=== PATIENT | male | born 1945 | race Caucasian/White ===

== ENCOUNTER 2016-06-12 10:41 | Inpatient (IN) | payer BC, OTHER ==
[~2016-06-12] VITALS: Ht 177.8 cm; Wt 94.8 kg
[~2016-06-12 10:41] MED LIST: FLV1 PO; METH2.5T PO; PRED-301 PO
[2016-06-12 12:31] VITALS: BP 141/89; PULSE 74; TEMP 36.4; O2SAT 96; Ht 177.8 cm; Wt 94.8 kg
[2016-06-12] MEDS ORDERED: FERR1TAB13 PO (13:09)
[2016-06-12] MEDS ORDERED: OMEP20CA9 PO (13:09)
[2016-06-12] MEDS ORDERED: DOXY100C76 PO (13:09)
[2016-06-12] MEDS ORDERED: ACETAMINOPHEN 325 MG TAB PO PRN (13:30)
[2016-06-12] MEDS ORDERED: ZOLPIDEM TARTRATE 5 MG TAB PO PRN (13:30)
[2016-06-12] MEDS ORDERED: POLYETHYLENE (MIRALAX) 17 GM PACK PO PRN (13:30)
[2016-06-12] MEDS ORDERED: MAGNESIUM HYDROXIDE SUSP 30 ML UDC PO PRN (13:30)
[2016-06-12] MEDS ORDERED: ALUMINUM/MAGNESIUM/SIMETH (MAALOX MAX) 30 ML UDC PO PRN (13:30)
[2016-06-12] MEDS ORDERED: ONDANSETRON INJ 2 MG/ML 2 ML VIAL IV PRN (13:30)
[2016-06-12 13:50] LABS: BASO % 0.3 %; BASO ABS # 0.02 K/uL (0-0.2); COMPLETE YES; HEMATOCRIT 48.2 % (42-52); IG% 0.3 %; LYMPH % 19.3 %; LYMPH ABS # 1.23 K/uL (1.2-3.4); MEAN CELL VOLUME 90.1 fL (80-100); MEAN CORPUSCULAR HEMOGLOBIN 30.7 pg (25-34); MEAN PLATELET VOLUME 10.1 fL (7.4-10.4); MONO % 10.4 %; NEUT % 66.7 %; PLATELET COUNT 142 K/uL (130-400); RED BLOOD COUNT 5.35 M/uL (4.7-6.1); WHITE BLOOD COUNT 6.36 K/uL (4.8-10.8)
[2016-06-12] MEDS ORDERED: CEFTRIAXONE SOD INJ 1 GM in DEXTROSE 5% ADD-VANTAGE 50ML 50 ML IV SCH (14:00)
[2016-06-12 14:06] LABS: PROTHROMBIN TIME (PATIENT) 10.3 SECONDS (9.0-12.0)
--- NOTE | 2016-06-12 14:12 | History and Physical ---
History & Physical Date & Time of Service: Jun 12, 2016 at 13:46 Chief Complaint: Left Foot Cellulitis Primary Care Physician: Rock Aguirre D.O. History of Present Illness Source: patient, clinic records This is a 70 year old male with PMH of rheumatoid arthritis on methotrexate and chronic prednisone who presents as a direct admission from Dr. Aguirre's office for left foot cellulitis which failed outpatient treatment. Patient initially developed erythema and swelling on the dorsum of his left foot on 06/03. There was no trauma. At that time he was seen by Dr. Aguirre in clinic and started on Keflex. Pt was seen again on 06/07, noted to have no improvement, so prednisone taper was added. He was seen again on 06/09, prednisone taper was stopped, he was given Rocephin 1 gram injection x1 dose, and PO antibiotics changed to Augmentin. Patient still had no improvement when seen in clinic today, so was sent for direct admission and IV antibiotics. Pt states he is able to bear weight normally, but has mild soreness on dorsum of foot rated 2/10 after standing for an extended period. Patient denies any fever or chills. No recent hospitalizations. Denies diabetes or hx of MRSA. Past Medical/Surgical History Medical Problems: (1) History of iron deficiency anemia Status: Chronic (2) Rheumatoid arthritis Status: Chronic (3) Rosacea Status: Chronic Surgical Problems: (1) H/O colonoscopy Status: Chronic (2) H/O esophagogastroduodenoscopy Status: Chronic (3) H/O inguinal hernia repair Status: Chronic (4) S/P cervical spinal fusion Status: Chronic Family History Cardiac disorder FATHER Hypertension MOTHER Stroke FATHER Social History Smoking Status: Former Smoker (quit in ) Alcohol Use: occasionally Marital Status: Housing status: lives with family Immunizations History of Influenza Vaccine: No History of Tetanus Vaccine?: Unknown History of Pneumococcal: Yes History of Hepatitis B Vaccine: Unknown Multi-Drug Resistant Organisms History of MDRO: No Allergies Coded Allergies: No Known Allergies (Verified Allergy, Unknown, 11/26/07) Home Medications Scheduled Doxycycline Monohydrate (Monodox), 100 MG PO DAILY Ferrous Sulfate (Kp Ferrous Sulfate), 1 TAB PO DAILY Folic Acid (Folvite *), 1 MG PO DAILY Methotrexate (Methotrexate), 20 MG PO WK Omeprazole (Prilosec), 20 MG PO DAILY Prednisone (Prednisone), 5 MG PO DAILY Review of Systems Constitutional: No chills, No fever, No sweats Eyes: No worsening of vision ENT: No nasal symptoms Respiratory: No cough, No shortness of breath Cardiovascular: No chest pain Abdomen: No diarrhea, No nausea, No vomiting Musculoskeletal: No joint pain (no joint pain- states RA is controlled) Genitourinary - Male: No problem reported (denies urinary change) Neurologic: No numbness/tingling, No problem reported (no BENAVIDEZ) Integumentary: + color change Physical Exam Vital Signs Date Time Temp Pulse Resp B/P Pulse Ox O2 Delivery O2 Flow Rate FiO2 06/12/16 12:31 36.4 74 16 141/89 96 Room Air General Appearance: WD/WN, no apparent distress, + pertinent finding (alert pleasant 70 year old male, no distress, at bedside) Head: normocephalic, atraumatic Eyes: normal inspection, PERRL, EOMI ENT: hearing grossly normal, pharynx normal Neck: supple, trachea midline Respiratory/Chest: lungs clear, normal breath sounds, no respiratory distress, no accessory muscle use Cardiovascular: regular rate, rhythm, no murmur Abdomen/GI: normal bowel sounds, non tender, soft Extremities/Musculoskelatal: no calf tenderness, no pedal edema, normal range of motion (left ankle ), + pertinent finding (DP pulses 2+ bilaterally. Left ankle nontender with normal ROM. Left MTP joints nontender.) Neurologic/Psych: alert, normal mood/affect, oriented x 3, + pertinent finding (grossly nonfocal) Skin: warm/dry, + pertinent finding (mild erythema and swelling on dorsum of left foot. no open areas. no fluctuance. ) Diagnostics Laboratory Results Results Past 24 Hours Test 06/12/16 13:35 06/12/16 13:36 Range/Units Microbiology Results 06/12/16 Blood Culture, Received Pending 06/12/16 Blood Culture, Panchito Batch Pending Impression Assessment and Plan LEFT FOOT CELLULITIS Failed outpatient treatment with Keflex, Augmentin, and Rocephin injection x 1 on 06/09/16 Afebrile, no leukocytosis, no tachycardia, no hypotension Check PRP, uric acid Check blood culture No open area to culture on the foot Start on Rocephin 1 gm/ daily RHEUMATOID ARTHRITIS On methotrexate and chronic prednisone 5 mg ROSACEA On doxycycline at home DVT PROPHYLAXIS Lovenox SQ DISPOSITION Admitted to med/surg Lives with Follows with Dr. Augirre for primary care Patient seen in collaboration with Dr. Evans. Pleases see his addendum. ATTENDING NOTE Patient seen & examined at bedside. Reviewed above History/Physical and confirmed all the findings in person. Patient was being treated for Cellulitis Left foot as outpatient and has failed on oral antibiotics. He has erythema with some localized tenderness. Initial labs ordered. Started I/V Rocephin. Pain medications as needed. Holding Doxycycline for Rosacea. Patient is FULL CODE. DVT Prophylaxis with Sq Lovenox. Patient will be followed by Dr. Al. Ruy Evans MD Level of Care Med/Surg Advanced Directives Existing Advance Directive: No Existing Living Will: No Existing Power of Gambling Cashier: No Resuscitation Status FULL RESUSCITATION VTE Prophylaxis VTE Risk Assessment Done? Y/N: Yes Risk Level: Low Given or contraindicated: Enoxaparin (Lovenox)SQ
[2016-06-12 14:23] LABS: BUN/CREATININE RATIO 24.2 (10-20); CALCIUM 8.8 mg/dl (8.5-10.1); CREATININE 0.77 mg/dl (0.60-1.40)
[2016-06-12 14:26] LABS: ALB/GLOB RATIO 1.2 (0.9-2)
[2016-06-12 15:17] VITALS: BP 125/76; PULSE 68; TEMP 36.6; O2SAT 97
[2016-06-12] MEDS: CEFTRIAXONE SOD INJ 1 GM in DEXTROSE 5% ADD-VANTAGE 50ML 50 ML IV SCH (15:33)
[2016-06-12] MEDS: ENOXAPARIN 40 MG/0.4 ML SYR SC SCH (21:08)
[2016-06-12 23:30] VITALS: BP 102/65; PULSE 63; TEMP 36.3; O2SAT 96
[2016-06-13 05:41] LABS: BASO % 0.3 %; BASO ABS # 0.02 K/uL (0-0.2); COMPLETE YES; HEMATOCRIT 45.3 % (42-52); IG% 0.3 %; LYMPH % 17.7 %; LYMPH ABS # 1.02 K/uL (1.2-3.4); MEAN CELL VOLUME 90.1 fL (80-100); MEAN CORPUSCULAR HEMOGLOBIN 30.6 pg (25-34); MEAN PLATELET VOLUME 10.4 fL (7.4-10.4); MONO % 14.3 %; NEUT % 63.4 %; PLATELET COUNT 139 K/uL (130-400); RED BLOOD COUNT 5.03 M/uL (4.7-6.1); WHITE BLOOD COUNT 5.75 K/uL (4.8-10.8)
[2016-06-13 06:36] LABS: BUN/CREATININE RATIO 23.9 (10-20); CALCIUM 8.4 mg/dl (8.5-10.1); CREATININE 0.86 mg/dl (0.60-1.40); POTASSIUM 4.4 mmol/L (3.5-5.1)
[2016-06-13 07:26] VITALS: BP 119/74; PULSE 65; TEMP 36.5; O2SAT 95
[2016-06-13] MEDS: FERROUS SULFATE 325 MG TAB PO SCH (09:49)
[2016-06-13] MEDS: PANTOprazole SOD 40 MG TAB PO SCH (09:49)
[2016-06-13] MEDS: CEFTRIAXONE SOD INJ 1 GM in DEXTROSE 5% ADD-VANTAGE 50ML 50 ML IV SCH (14:38)
[2016-06-13 14:59] VITALS: BP 137/83; PULSE 69; TEMP 36.6; O2SAT 94
--- NOTE | 2016-06-13 15:22 | Progress Note ---
Medicine Progress Note Date & Time of Visit: Jun 13, 2016 at 15:07. Subjective Pt was seen and examined Lying in bed comfortable with no distress was at bedside was a little upset because pt pt is only getting rocephin daily for the cellulitis she feels like there should be no need to stay in the hospital just for that. I explained to them that pt failed outpatient treatment for cellulitis with po med. he will need to stay in the hospital for today and possible transition to po med once culture results. Pt denies any fever, palpitation, dizziness and SOB Pt said that the erythema and tenderness and improved, but the left dorsal foot still swelling. Objective Last 8 Hrs Date Time Temp Pulse Resp B/P Pulse Ox O2 Delivery O2 Flow Rate FiO2 06/13/16 14:59 36.6 69 18 137/83 94 Room Air 06/13/16 07:30 Room Air 06/13/16 07:26 36.5 65 18 119/74 95 Room Air Physical Exam: General- no acute distress Head- atraumatic Eyes- PERRL, EOMI ENT- oropharynx clear Neck- supple, no JVD Lungs- clear to auscultation and percussion Heart- regular rhythm; no murmur Abdomen- normal bowel sounds, soft, nontender Extremities- no calf tenderness, left foot swelling and warmness, erythema improved Neuro- alert, oriented x 3; PERRL, EOMI; no facial palsy Skin- warm & dry Laboratory Results: Last 24 Hours Test 06/13/16 05:30 White Blood Count 5.75 K/uL Red Blood Count 5.03 M/uL Hemoglobin 15.4 g/dL Hematocrit 45.3 % Mean Corpuscular Volume 90.1 fL Mean Corpuscular Hemoglobin 30.6 pg Mean Corpuscular Hemoglobin Concent 34.0 g/dl Platelet Count 139 K/uL Mean Platelet Volume 10.4 fL Neutrophils (%) (Auto) 63.4 % Lymphocytes (%) (Auto) 17.7 % Monocytes (%) (Auto) 14.3 % Eosinophils (%) (Auto) 4.0 % Basophils (%) (Auto) 0.3 % Neutrophils # (Auto) 3.64 K/uL Lymphocytes # (Auto) 1.02 K/uL Monocytes # (Auto) 0.82 K/uL Eosinophils # (Auto) 0.23 K/uL Basophils # (Auto) 0.02 K/uL RDW Standard Deviation 47.7 fL RDW Coefficient of Variation 14.6 % Immature Granulocyte % (Auto) 0.3 % Immature Granulocyte # (Auto) 0.02 K/uL Sodium Level 143 mmol/L Potassium Level 4.4 mmol/L Chloride Level 108 mmol/L Carbon Dioxide Level 30 mmol/L Anion Gap 5.0 mmol/L Blood Urea Nitrogen 21 mg/dl Creatinine 0.86 mg/dl Est Creatinine Clear Calc Drug Dose 93.7 ml/min Estimated GFR () 102.5 Estimated GFR (Non- 88.5 BUN/Creatinine Ratio 23.9 Random Glucose 92 mg/dl Calcium Level 8.4 mg/dl Assessment & Plan LEFT FOOT CELLULITIS Failed outpatient treatment with Keflex, Augmentin, and Rocephin injection x 1 on 06/09/16 Afebrile, no WBC On Rocephin IV day 2 blood culture pending Erythema improved significantly will transition to PO abx upon discharge RHEUMATOID ARTHRITIS On methotrexate and chronic prednisone 5 mg Stable ROSACEA On doxycycline at home that is being held DVT PROPHYLAXIS Lovenox SQ DISPOSITION Admitted to med/surg Follows with Dr. Aguirre for primary care Current Inpatient Medications: Current Inpatient Medications Medications (Trade) Dose Ordered Sig/La Route Start Time Stop Time Status Last Admin Dose Admin Folic Acid (Folvite Tab) 1 mg DAILY PO 06/13/16 09:00 07/13/16 08:59 06/13/16 09:49 1 MG Prednisone (PredniSONE TAB) 5 mg DAILY PO 06/13/16 09:00 07/13/16 08:59 06/13/16 09:50 5 MG Ferrous Sulfate (Feosol Tab) 325 mg DAILY PO 06/13/16 09:00 07/13/16 08:59 06/13/16 09:49 325 MG Pantoprazole Sodium (Protonix Tab) 40 mg DAILY PO 06/13/16 09:00 07/13/16 08:59 06/13/16 09:49 40 MG Enoxaparin Sodium (Lovenox Inj) 40 mg Q24H SC 06/12/16 21:00 07/12/16 20:59 06/12/16 21:08 40 MG Acetaminophen (Tylenol Tab) 650 mg Q4H PRN PO 06/12/16 13:30 07/12/16 13:29 Al Hydrox/Mg Hydrox/Simethicone (Maalox Max Susp) 15 ml Q4H PRN PO 06/12/16 13:30 07/12/16 13:29 Magnesium Hydroxide (Milk Of Magnesia Susp) 30 ml Q12H PRN PO 06/12/16 13:30 07/12/16 13:29 Zolpidem Tartrate (Ambien Tab) 5 mg HSZ PRN PO 06/12/16 13:30 07/12/16 13:29 Ondansetron HCl (Zofran Inj) 4 mg Q6H PRN IV 06/12/16 13:30 07/12/16 13:29 Polyethylene 17 gm 17 gm DAILY PRN PO 06/12/16 13:30 07/12/16 13:29 Ceftriaxone Sodium/Dextrose (Rocephin Inj/ Dextrose Add-[place] 50ML) 50 ml @ 100 mls/hr Q24H IV 06/12/16 15:00 06/22/16 14:59 06/13/16 14:38 100 MLS/HR
[2016-06-13] MEDS: ENOXAPARIN 40 MG/0.4 ML SYR SC SCH (21:27)
[2016-06-13 22:50] VITALS: BP 132/76; PULSE 60; TEMP 36.5; O2SAT 99
[2016-06-14 06:58] LABS: HEMATOCRIT 43.7 % (42-52); MEAN CELL VOLUME 87.8 fL (80-100); MEAN CORPUSCULAR HEMOGLOBIN 30.1 pg (25-34); MEAN CORPUSCULAR HGB CONC 34.3 g/dl (32-36); MEAN PLATELET VOLUME 10.5 fL (7.4-10.4); PLATELET COUNT 137 K/uL (130-400); RED BLOOD COUNT 4.98 M/uL (4.7-6.1); WHITE BLOOD COUNT 5.84 K/uL (4.8-10.8)
[2016-06-14 07:27] LABS: BUN/CREATININE RATIO 20.3 (10-20); CALCIUM 8.3 mg/dl (8.5-10.1); CREATININE 0.94 mg/dl (0.60-1.40)
[2016-06-14 08:01] VITALS: BP 130/72; PULSE 74; TEMP 36.7; O2SAT 95
[2016-06-14 09:10] VITALS: O2SAT 95
[2016-06-14] MEDS: PANTOprazole SOD 40 MG TAB PO SCH (10:05)
[2016-06-14] MEDS: FERROUS SULFATE 325 MG TAB PO SCH (10:05)
[2016-06-14] MEDS: CEFTRIAXONE SOD INJ 1 GM in DEXTROSE 5% ADD-VANTAGE 50ML 50 ML IV SCH (14:28)
--- NOTE | 2016-06-14 14:51 | Progress Note ---
Medicine Progress Note Date & Time of Visit: Jun 14, 2016 at 14:43. Subjective Pt was seen and examined Pt sitting in chair comfortable with no distress Pt said that the foot looks better, but it is still swelling he denies any tenderness, chest pain, palpitation and SOB. Pt would like to go home today. Objective Last 8 Hrs Date Time Temp Pulse Resp B/P Pulse Ox O2 Delivery O2 Flow Rate FiO2 06/14/16 09:10 95 Room Air 06/14/16 08:01 36.7 74 16 130/72 95 Room Air 06/14/16 07:15 Room Air Physical Exam: General- no acute distress Head- atraumatic Eyes- PERRL, EOMI ENT- oropharynx clear Neck- supple, no JVD Lungs- clear to auscultation and percussion Heart- regular rhythm; no murmur Abdomen- normal bowel sounds, soft, nontender Extremities- no calf tenderness, left foot swelling, erythema improved Neuro- alert, oriented x 3; PERRL, EOMI; no facial palsy Skin- warm & dry Laboratory Results: Last 24 Hours Test 06/14/16 06:29 White Blood Count 5.84 K/uL Red Blood Count 4.98 M/uL Hemoglobin 15.0 g/dL Hematocrit 43.7 % Mean Corpuscular Volume 87.8 fL Mean Corpuscular Hemoglobin 30.1 pg Mean Corpuscular Hemoglobin Concent 34.3 g/dl RDW Standard Deviation 46.1 fL RDW Coefficient of Variation 14.6 % Platelet Count 137 K/uL Mean Platelet Volume 10.5 fL Sodium Level 144 mmol/L Potassium Level 4.0 mmol/L Chloride Level 110 mmol/L Carbon Dioxide Level 24 mmol/L Anion Gap 10.0 mmol/L Blood Urea Nitrogen 19 mg/dl Creatinine 0.94 mg/dl Est Creatinine Clear Calc Drug Dose 85.7 ml/min Estimated GFR () 95.5 Estimated GFR (Non- 82.4 BUN/Creatinine Ratio 20.3 Random Glucose 93 mg/dl Calcium Level 8.3 mg/dl Assessment & Plan LEFT FOOT CELLULITIS Failed outpatient treatment with Keflex, Augmentin, and Rocephin injection x 1 on 06/09/16 Afebrile, no WBC On Rocephin IV day 3 blood culture showed no growth Erythema resolved will transition to PO ceftin 500mg BID upon discharge RHEUMATOID ARTHRITIS On methotrexate and chronic prednisone 5 mg Stable ROSACEA On doxycycline at home that is being held DVT PROPHYLAXIS Lovenox SQ DISPOSITION Follow up with your primary care provider Dr. Aguirre on Jun 19 at 2:50 pm Current Inpatient Medications: Current Inpatient Medications Medications (Trade) Dose Ordered Sig/La Route Start Time Stop Time Status Last Admin Dose Admin Folic Acid (Folvite Tab) 1 mg DAILY PO 06/13/16 09:00 07/13/16 08:59 06/14/16 10:05 1 MG Prednisone (PredniSONE TAB) 5 mg DAILY PO 06/13/16 09:00 07/13/16 08:59 06/14/16 10:05 5 MG Ferrous Sulfate (Feosol Tab) 325 mg DAILY PO 06/13/16 09:00 07/13/16 08:59 06/14/16 10:05 325 MG Pantoprazole Sodium (Protonix Tab) 40 mg DAILY PO 06/13/16 09:00 07/13/16 08:59 06/14/16 10:05 40 MG Enoxaparin Sodium (Lovenox Inj) 40 mg Q24H SC 06/12/16 21:00 07/12/16 20:59 06/13/16 21:27 40 MG Acetaminophen (Tylenol Tab) 650 mg Q4H PRN PO 06/12/16 13:30 07/12/16 13:29 Al Hydrox/Mg Hydrox/Simethicone (Maalox Max Susp) 15 ml Q4H PRN PO 06/12/16 13:30 07/12/16 13:29 Magnesium Hydroxide (Milk Of Magnesia Susp) 30 ml Q12H PRN PO 06/12/16 13:30 07/12/16 13:29 Zolpidem Tartrate (Ambien Tab) 5 mg HSZ PRN PO 06/12/16 13:30 07/12/16 13:29 Ondansetron HCl (Zofran Inj) 4 mg Q6H PRN IV 06/12/16 13:30 07/12/16 13:29 Polyethylene 17 gm 17 gm DAILY PRN PO 06/12/16 13:30 07/12/16 13:29 Ceftriaxone Sodium/Dextrose (Rocephin Inj/ Dextrose Add-[place] 50ML) 50 ml @ 100 mls/hr Q24H IV 06/12/16 15:00 06/22/16 14:59 06/14/16 14:28 100 MLS/HR
[2016-06-14 15:21] VITALS: BP 132/81; PULSE 62; TEMP 36.9; O2SAT 95
[2016-06-14] MEDS ORDERED: CEFU500T16 PO (16:14)
--- NOTE | 2016-06-14 16:20 | Discharge Instructions ---
Discharge Instructions Admission Reason for Admission: Left Foot Cellulitis Discharge Discharge Diagnosis / Problem: Left foot cellulitis, Rheumatoid arthritis Discharge Goals Goal(s): Decrease discomfort, Improve function, Improve disease control Activity Recommendations Activity Limitations: resume your previous activity . Instructions / Follow-Up Instructions / Follow-Up Follow up appointment with your primary care physician Dr. Aguirre on Jun 19 at 2:50 pm Please complete the course of antibiotic Keep leg elevates to decrease the swelling in left foot. Current Hospital Diet Patient's current hospital diet: AHA Diet (Heart Healthy) Discharge Diet Recommended Diet: AHA Diet (Heart Healthy) Pending Studies Studies pending at discharge: yes List of pending studies: Blood culture Medical Emergencies . Who to Call and When: Medical Emergencies: If at any time you feel your situation is an emergency, please call 911 immediately. . Non-Emergent Contact Non-Emergency issues call your: Primary Care Provider Call Non-Emergent contact if: you have a fever, you have any medication questions . . "Provider Documentation" section prepared by Keron Castano. VTE Core Measure Inpt VTE Proph given/why not?: Enoxaparin (Lovenox)SQ
[2016-06-14 16:45] VITALS: BP 132/81; PULSE 62; TEMP 36.9; O2SAT 95
--- NOTE | 2016-06-14 23:22 | Discharge Summary ---
Discharge Summary Admission Date: Jun 12, 2016 at 11:52 Discharge Date: Jun 14, 2016 Discharge Disposition: Home Principal Diagnosis: left foot cellulitis Secondary Diagnoses/Problems: Rheumatoid arthritis Pending Studies/Follow-Up: final blood culture result Medication Reconciliation New Medications: Cefuroxime Axetil (Ceftin) 500 Mg Tab 500 MG PO BID for 7 Days, #14 TAB Continued Medications: Doxycycline Monohydrate (Monodox) 100 Mg Cap 100 MG PO DAILY, CAP Ferrous Sulfate (Kp Ferrous Sulfate) 325 Mg Tab 1 TAB PO DAILY for 30 Days, #30 TAB 3 Refills Folic Acid (Folvite *) 1 Mg Tab 1 MG PO DAILY, 0 Refills Methotrexate (Methotrexate) 2.5 Mg Tab 20 MG PO WK, 0 Refills Omeprazole (Prilosec) 20 Mg Cap 20 MG PO DAILY, CAP Prednisone (Prednisone) 5 Mg Tab 5 MG PO DAILY, 0 Refills Admission Information HPI (per Admitting provider): This is a 70 year old male with PMH of rheumatoid arthritis on methotrexate and chronic prednisone who presents as a direct admission from Dr. Aguirre's office for left foot cellulitis which failed outpatient treatment. Patient initially developed erythema and swelling on the dorsum of his left foot on 06/03. There was no trauma. At that time he was seen by Dr. Aguirre in clinic and started on Keflex. Pt was seen again on 06/07, noted to have no improvement, so prednisone taper was added. He was seen again on 06/09, prednisone taper was stopped, he was given Rocephin 1 gram injection x1 dose, and PO antibiotics changed to Augmentin. Patient still had no improvement when seen in clinic today, so was sent for direct admission and IV antibiotics. Pt states he is able to bear weight normally, but has mild soreness on dorsum of foot rated 2/10 after standing for an extended period. Patient denies any fever or chills. No recent hospitalizations. Denies diabetes or hx of MRSA. Physical Exam (per Admitting): General Appearance: WD/WN, no apparent distress, + pertinent finding (alert pleasant 70 year old male, no distress, at bedside) Head: normocephalic, atraumatic Eyes: normal inspection, PERRL, EOMI ENT: hearing grossly normal, pharynx normal Neck: supple, trachea midline Respiratory/Chest: lungs clear, normal breath sounds, no respiratory distress, no accessory muscle use Cardiovascular: regular rate, rhythm, no murmur Abdomen/GI: normal bowel sounds, non tender, soft Extremities/Musculoskelatal: no calf tenderness, no pedal edema, normal range of motion (left ankle ), + pertinent finding (DP pulses 2+ bilaterally. Left ankle nontender with normal ROM. Left MTP joints nontender.) Neurologic/Psych: alert, normal mood/affect, oriented x 3, + pertinent finding (grossly nonfocal) Skin: warm/dry, + pertinent finding (mild erythema and swelling on dorsum of left foot. no open areas. no fluctuance. ) Hospital Course LEFT FOOT CELLULITIS Failed outpatient treatment with Keflex, Augmentin, and Rocephin injection x 1 on 06/09/16 Afebrile, no WBC On Rocephin IV day 3 blood culture showed no growth Erythema resolved will transition to PO ceftin 500mg BID upon discharge RHEUMATOID ARTHRITIS On methotrexate and chronic prednisone 5 mg Stable ROSACEA On doxycycline at home that is being held DVT PROPHYLAXIS Lovenox SQ DISPOSITION Follow up with your primary care provider Dr. Aguirre on Jun 19 at 2:50 pm Total time spent on discharge = 35 minutes This includes examination of the patient, discharge planning, medication reconciliation, and communication with other providers. Discharge Instructions Discharge Instructions Admission Reason for Admission: Left Foot Cellulitis Discharge Discharge Diagnosis / Problem: Left foot cellulitis, Rheumatoid arthritis Discharge Goals Goal(s): Decrease discomfort, Improve function, Improve disease control Activity Recommendations Activity Limitations: resume your previous activity . Instructions / Follow-Up Instructions / Follow-Up Follow up appointment with your primary care physician Dr. Aguirre on Jun 19 at 2:50 pm Please complete the course of antibiotic Keep leg elevates to decrease the swelling in left foot. Current Hospital Diet Patient's current hospital diet: AHA Diet (Heart Healthy) Discharge Diet Recommended Diet: AHA Diet (Heart Healthy) Pending Studies Studies pending at discharge: yes List of pending studies: Blood culture Medical Emergencies . Who to Call and When: Medical Emergencies: If at any time you feel your situation is an emergency, please call 911 immediately. . Non-Emergent Contact Non-Emergency issues call your: Primary Care Provider Call Non-Emergent contact if: you have a fever, you have any medication questions . . "Provider Documentation" section prepared by Kerno Castano. VTE Core Measure Inpt VTE Proph given/why not?: Enoxaparin (Lovenox)SQ Additional Copies To Rock Aguirre D.O.
== END 2016-06-14 17:25 | disposition home or self-care (01) | DRG 603 ==
LOC: C.MSW 11:52
PROVIDERS: ADMIT Emergency Medicine; ATTEND Internal Medicine
DX: L03.116 Cellulitis of left lower limb (principal); M06.9 Rheumatoid arthritis, unspecified; L71.9 Rosacea, unspecified; Z87.891 Personal history of nicotine dependence; Z79.52 Long term (current) use of systemic steroids; Z79.899 Other long term (current) drug therapy